=== PATIENT | female | born 1965 | race Two or more races ===

== ENCOUNTER 2017-09-07 12:53 | Inpatient (IN) | payer SELFPAY ==
[2017-09-07] MEDS ORDERED: NORMAL SALINE 1000 ML 1,000 ML IV ONE (13:33)
[2017-09-07 14:14] LABS: HEMATOCRIT 34.7 % (36.0-47.0); HEMOGLOBIN 11.2 g/dL (12.0-15.5); MEAN CORPUSCULAR HEMOGLOBIN 31.3 pg (27.0-33.4); MEAN CORPUSCULAR HGB CONC 32.3 g/dL (32.0-36.0); MEAN CORPUSCULAR VOLUME 97 fl (80-97); PLATELET COUNT 338 10^3/uL (150-450); RED BLOOD COUNT 3.59 10^6/uL (3.72-5.28); RED CELL DISTRIBUTION WIDTH 16.2 % (11.5-14.0)
[2017-09-07 14:17] LABS: WHITE BLOOD COUNT 32.5 10^3/uL (4.0-10.5)
[2017-09-07 14:29] LABS: ALANINE AMINOTRANSFERASE 8 U/L (9-52); ALBUMIN 3.7 g/dL (3.5-5.0); ALKALINE PHOSPHATASE 104 U/L (38-126); ANION GAP 15 (5-19); ASPARTATE AMINO TRANSFERASE 21 U/L (14-36); BILIRUBIN,DIRECT 0.5 mg/dL (0.0-0.4); BILIRUBIN,TOTAL 0.6 mg/dL (0.2-1.3); BLOOD UREA NITROGEN 11 mg/dL (7-20); CALCIUM 8.9 mg/dL (8.4-10.2); CARBON DIOXIDE 27 mmol/L (22-30); CHLORIDE 102 mmol/L (98-107); GLUCOSE 113 mg/dL (75-110); LIPASE 458.4 U/L (23-300); POTASSIUM 3.8 mmol/L (3.6-5.0); SODIUM 144.4 mmol/L (137-145); TOTAL PROTEIN 6.7 g/dL (6.3-8.2)
[2017-09-07 14:30] LABS: CREATINE KINASE < 20 U/L (30-135)
[2017-09-07 14:37] LABS: ABSOLUTE NEUTROPHILS# (MANUAL) 30.2 10^3/uL (1.7-8.2); BAND NEUTROPHILS % (MANUAL) 13 % (3-5); BASOPHILS % (MANUAL) 0 % (0-2); EOSINOPHILS % (MANUAL) 1 % (0-6); LYMPHOCYTES % (MANUAL) 3 % (13-45); METAMYELOCYTES % (MANUAL) 3 % (0); MONOCYTES % (MANUAL) 3 % (3-13); SEGMENTED NEUTROPHILS % (MAN) 77 % (42-78); TOTAL CELLS COUNTED 100
[2017-09-07 14:38] LABS: ANISOCYTOSIS 1+; PLATELET COMMENT ADEQUATE; ROULEAUX 1+; TOXIC GRANULATION 1+
[2017-09-07 14:39] LABS: CREATINE KINASE MB < 0.22 ng/mL (<4.55); TROPONIN I < 0.012 ng/mL
[2017-09-07 15:05] LABS: VENOUS BLOOD PCO2 57.8 mmHg (35-63); VENOUS BLOOD PH 7.3 (7.30-7.42)
[2017-09-07 15:11] LABS: APPEARANCE,URINE SLIGHTLY-CLOUDY; BILIRUBIN,URINE NEGATIVE (NEGATIVE); COLOR,URINE YELLOW; GLUCOSE, URINE NEGATIVE (NEGATIVE); KETONES,URINE NEGATIVE (NEGATIVE); LEUKOCYTE ESTERASE,URINE TRACE (NEGATIVE); NITRITE,URINE NEGATIVE (NEGATIVE); PROTEIN,URINE NEGATIVE (NEGATIVE); URINE SPECIFIC GRAVITY 1.019; UROBILINOGEN,URINE NEGATIVE mg/dL (<2.0)
--- NOTE | 2017-09-07 15:31 | RADIOLOGY REPORT (SQ) ---
EXAM DESCRIPTION: CTA CHEST COMPLETED DATE/TIME: 09/07/2017 3:04 pm REASON FOR STUDY: lung ca, on chemo, sob since this am COMPARISON: None. TECHNIQUE: CT scan of the chest performed using helical scanning technique with dynamic intravenous contrast injection. Images reviewed with lung, soft tissue and bone windows. Reconstructed coronal and sagittal MPR images reviewed. Additional 3 dimensional post-processing performed to develop Maximal Intensity Projection images (SC P). All images stored on PACS. All CT scanners at this facility use dose modulation, iterative reconstruction, and/or weight based d osing when appropriate to reduce radiation dose to as low as reasonably achievable (ALARA). [facility]: Dose Right [facility]: CareDose [facility]: Dose Right [facility]: Teradose 4D [facility]: Mesolight CONTRAST TYPE AND DOSE: contrast/concentration: Isovue 370.00 mg/ml; Total Contrast Delivered: 65.0 ml; Total Saline Delivered: 80.0 ml Contrast bolus optimized for the pulmonary arteries. Not diagnostic for the aorta. RENAL FUNCTION: CREATININE 0.88 RADIATION DOSE: CT Rad equipment meets quality standard of care and radiation dose reduction techniq ues were employed. CTDIvol: 14.3 - 39.7 mGy. DLP: 514 mGy-cm. . LIMITATIONS: None. FINDINGS: LUNGS AND PLEURA: Multiple cavitary nodules are scattered throughout the right lung, the l argest is 2 cm in the right middle lobe. These are worrisome for cavitary metastatic lesions. Septi c emboli could mimic this appearance. No right-sided pleural effusion or pneumothorax. No findings worrisome for acute right lung consolid ation. On the left side, patient has volume loss and pleural thickening with bronchiectasis and parenchymal consolidation in the left perihilar lung and left lower lobe. No pleural effusion. No pneumothorax. AORTA AND GREAT VESSELS: No aneurysm. Contrast bolus not optimized for the aorta. HEART: Small pericardial effusion No significant coronary artery calcifications. PULMONARY ARTERIES: No emboli visualized in the main pulmonary arteries or the segmental branches. HILAR AND MEDIASTINAL STRUCTURES: Conglomerate adenopathy is present along the right peritracheal reg ion, 3.5 x 2 cm in size. Sub- carinal lymph node 3.2 x 2.3 cm in size. HARDWARE: Right permanent central line tip superior vena cava UPPER ABDOMEN: Fat containing subxiphoid ventral hernia. Post cholecystectomy. 2.5 cm cyst left lob e liver subdiaphragmatic surface THYROID AND OTHER SOFT TISSUES: No masses. No adenopathy. BONES: 25% compression of T11, chronic in appearance. Left posterior 7th rib is expanded with mixed lytic and blastic change, worrisome for bony metastatic involvement 3D MIPS: Confirm above findings. OTHER: Report called to the patient's primary caregiver in the emergency room IMPRESSION: No CT angio evidence of acute pulmonary emboli. Post therapeutic changes left hemithorax without pleural effusion or pneumothorax. Right lung cavitary lesions likely metastatic disease Small pericardial effusion COMMENT: Quality ID # [id number]: Final reports with documentation of one or more dose reduction techniques (e.g., Automated exposure control, adjustment of the mA and/or kV according to patient size, use of iterative reconstruction technique) TECHNICAL DOCUMENTATION: JOB ID: [id number] [employer] All Rights Reserved Reading location - IP/workstation name: [email or web address]
[2017-09-07] MEDS ORDERED: HYDROMORPHONE HCL INJ/PF 2 MG/ML AMPULE IV ONE (15:43)
[2017-09-07] MEDS ORDERED: VANCOMYCIN HCL INJ 1000 MG VIAL IV ONE (15:56)
[2017-09-07] MEDS ORDERED: PIPERACILLIN/TAZOBACTAM 3.375 GM VIAL IV ONE (15:56)
[2017-09-07] MEDS ORDERED: ENOXAPARIN SODIUM INJ 80 MG/0.8 ML DISP.SYRIN SUBCUT SCH (16:00)
[2017-09-07] MEDS ORDERED: METOCLOPRAMIDE HCL INJ/PF 10 MG/2 ML SDV IV ONE (16:09)
[2017-09-07] MEDS ORDERED: ACETAMINOPHEN 325 MG TABLET PO PRN (16:38)
[2017-09-07] MEDS ORDERED: NORMAL SALINE 1000 ML 1,000 ML IV PRN (16:38)
[2017-09-07] MEDS ORDERED: LEVALBUTEROL HCL NEB 0.63 MG/3 ML AMPUL NEB PRN (16:38)
[2017-09-07] MEDS ORDERED: TEMAZEPAM 15 MG CAPSULE PO PRN (16:38)
[2017-09-07] MEDS ORDERED: ONDANSETRON HCL INJ/PF 4 MG/2 ML SDV IV PRN (16:38)
--- NOTE | 2017-09-07 16:50 | ER Document Report ---
ED Respiratory Problem - General Chief Complaint: Shortness Of Breath Stated Complaint: SHORTNESS OF BREATH,RIGHT LUNG PAIN Time Seen by Provider: 09/07/17 13:31 Mode of Arrival: Ambulatory Information source: Patient Notes: Patient is a 51-year-old female currently undergoing chemotherapy and Neulasta injections for lung cancer. Patient drives back and forth to [facility] as she just moved to this area 2 weeks ago and still has her oncologist that she sees there. Patient states she just had chemo and Neulasta approximately 1 week ago. She states that she is here because this morning she woke up and started having some right lower chest and upper back pain that is very sharp and hurts worse with deep breathing. She admits to some shortness of breath but mainly the pain with deep breaths. Patient did call her oncologist, Dr. Lomas in [facility] who stated "you probably have a PE, go to the ER. " Patient is not on a blood thinners and has no history of any blood clots. She denies coughing, fevers or chills. She states she does have one nodule in the left lung that is larger and one smaller nodule in the right lung that she knows about. She is due to have a PET scan coming up soon. Patient is no longer a smoker, she stopped in 2012. - Related Data Allergies/Adverse Reactions: No Known Allergies Allergy (Unverified 09/07/17 13:00) Past Medical History - General Information source: Patient - Social History Smoking Status: Former Smoker Chew tobacco use (# tins/day): No Frequency of alcohol use: None Drug Abuse: None Family History: Reviewed & Not Pertinent Patient has suicidal ideation: No Patient has homicidal ideation: No Renal/ Medical History: Denies: Hx Peritoneal Dialysis Past Surgical History: Reports: Hx Vascular Surgery Review of Systems - Review of Systems Constitutional: No symptoms reported EENT: No symptoms reported Cardiovascular: See HPI Respiratory: See HPI Gastrointestinal: No symptoms reported Genitourinary: No symptoms reported Female Genitourinary: No symptoms reported Musculoskeletal: No symptoms reported Skin: No symptoms reported Hematologic/Lymphatic: No symptoms reported Neurological/Psychological: No symptoms reported Physical Exam - Vital signs Vitals: Temp Pulse Resp BP Pulse Ox 98.0 F 92 20 93/60 L 98 09/07/17 13:07 09/07/17 13:07 09/07/17 13:07 09/07/17 13:07 09/07/17 13:07 - Notes Notes: PHYSICAL EXAMINATION: GENERAL: Mildly ill-appearing, but in no acute distress. HEAD: Atraumatic, normocephalic. EYES: Pupils equal round and reactive to light, extraocular movements intact, sclera anicteric, conjunctiva are normal. ENT: ear canals without erythema or foreign body, TMs pearly keita with good bony landmarks, nares patent, oropharynx clear without exudates. Moist mucous membranes. Airway patent NECK: Normal range of motion, supple without lymphadenopathy LUNGS: Pain with deep breathing, otherwise CTAB and equal. No wheezes rales or rhonchi. HEART: Regular rate and rhythm without murmurs ABDOMEN: Soft, no tenderness. No guarding, no rebound BACK: no vertebral tenderness, normal ROM GI/: no CVA tenderness EXTREMITIES: Normal range of motion, no pitting edema. No cyanosis. NEUROLOGICAL: Cranial nerves grossly intact. Normal sensory/motor exams. PSYCH: Normal mood, normal affect. SKIN: Warm, Dry, normal turgor, no rashes or lesions noted Course - Re-evaluation Re-evalutation: 09/07/17 16:49 Patient is not tachycardic, tachypneic but she does have some hypotension at 91/ 50 blood pressure on arrival. This normalized with some IV fluids immediately. Patient is afebrile. Patient does not look short of breath but does have pain on deep breathing on physical exam to the right lower chest and mid back. These areas are nontender. CAT scan reveals multiple cavitary metastatic lesions to the right lobe but no obvious PE, radiologist did put in the report that septic emboli cannot be completely excluded today. White blood cell count is elevated at 32 with 13 bands and 30.2 absolute neutrophils, however patient is on Neulasta and I associate that with that medication. Dr. lutz, oncologist agrees with this. Dr. Mckeon accepts admission at this time. Dr. Lutz, oncologist on-call was consulted and does not believe that this is septic emboli, but does agree with the antibiotic choices at this time and would like to see her admitted, observed so that he can take a look at her in the hospital and evaluate her then. Patient stable at this time with a blood pressure of 95/64, heart rate of 82 and 100% oxygen saturation on room air. Her heart rate was 107/64 until she was given Dilaudid. She also had no oxygen requirement until given Dilaudid. 09/07/17 17:49 - Vital Signs Vital signs: Temp Pulse Resp BP Pulse Ox 98.0 F 92 16 91/60 L 95 09/07/17 13:07 09/07/17 13:07 09/07/17 14:01 09/07/17 14:01 09/07/17 14:01 - Laboratory Result Diagrams: 09/07/17 13:16 09/07/17 13:16 Laboratory results interpreted by me: 09/07/17 09/07/17 09/07/17 13:16 13:16 13:16 WBC 32.5 H* RBC 3.59 L Hgb 11.2 L Hct 34.7 L RDW 16.2 H Band Neutrophils % 13 H Lymphocytes % (Manual) 3 L Metamyelocytes % 3 H Abs Neuts (Manual) 30.2 H Glucose 113 H Magnesium 2.4 H Direct Bilirubin 0.5 H ALT 8 L Creatine Kinase < 20 L Lipase 458.4 H Ur Leukocyte Esterase Urine Ascorbic Acid 09/07/17 14:08 WBC RBC Hgb Hct RDW Band Neutrophils % Lymphocytes % (Manual) Metamyelocytes % Abs Neuts (Manual) Glucose Magnesium Direct Bilirubin ALT Creatine Kinase Lipase Ur Leukocyte Esterase TRACE H Urine Ascorbic Acid 40 H Discharge - Discharge Clinical Impression: cavitary metastatic lesions right lung, Right-sided chest pain Lung cancer Qualifiers: Laterality: unspecified laterality Lung location: unspecified part of lung Qualified Code(s): C34.90 - Malignant neoplasm of unspecified part of unspecified bronchus or lung Condition: Stable Disposition: ADMITTED INPATIENT Admitting Provider: Hospitalist - may Unit Admitted: Telemetry
--- NOTE | 2017-09-07 17:15 | PDOC H&P ---
History of Present Illness Admission Date/PCP: September 07, 2017 Dr. Lomas in [facility], primary oncologist. Patient complains of: Right-sided chest pain History of Present Illness: The patient is a very pleasant 51-year-old lady with history of Lung cancer on chemotherapy- Taxotere and Cyramza- last dose 09/04/17 + Neulasta Hypothyroidism Insomnia She presented to the hospital with sudden onset pleuritic right-sided chest pain. She called her oncologist who asked her to go to the emergency room due to concerns for possible pulmonary embolism. A CT angiogram of the chest was performed. No pulmonary embolism was seen. She does have multiple bilateral pulmonary nodules which are cavitary in nature. She denies any fevers chills or cough. She has some nausea and vomiting but no abdominal pain or constipation no diarrhea. The patient requests to be a full code. Past Medical History Malignancy Medical History: Reports: Lung Cancer Past Surgical History Past Surgical History: Reports: Vascular Surgery Social History Smoking Status: Former Smoker Frequency of Alcohol Use: None Hx Recreational Drug Use: No - Advance Directive Resuscitation Status: Full Code Family History Family History: Hypertension Parental Family History Reviewed: Yes Children Family History Reviewed: Yes Sibling(s) Family History Reviewed.: Yes Medication/Allergy Allergies/Adverse Reactions: No Known Allergies Allergy (Unverified 09/07/17 13:00) Review of Systems Constitutional: ABSENT: fever(s) Eyes: ABSENT: visual disturbances Ears: ABSENT: hearing changes Nose, Mouth, and Throat: ABSENT: sore throat Cardiovascular: PRESENT: chest pain. ABSENT: edema Respiratory: ABSENT: dyspnea Gastrointestinal: PRESENT: nausea, vomiting. ABSENT: abdominal pain, constipation Genitourinary: ABSENT: dysuria Musculoskeletal: ABSENT: joint swelling Integumentary: ABSENT: rash Neurological: ABSENT: focal weakness Psychiatric: ABSENT: hallucinations Endocrine: ABSENT: cold intolerance, heat intolerance Hematologic/Lymphatic: ABSENT: easy bleeding Allergic/Immunologic: ABSENT: seasonal rhinorrhea Physical Exam Vital Signs: Temp Pulse Resp BP Pulse Ox 98.0 F 92 16 91/60 L 95 09/07/17 13:07 09/07/17 13:07 09/07/17 14:01 09/07/17 14:01 09/07/17 14:01 Intake & Output 09/06/17 09/07/17 09/08/17 06:59 06:59 06:59 Weight 66.4 kg General appearance: PRESENT: mild distress Head exam: PRESENT: normocephalic Eye exam: PRESENT: PERRLA. ABSENT: scleral icterus Ear exam: PRESENT: normal external ear exam Mouth exam: PRESENT: moist Neck exam: ABSENT: tracheal deviation Respiratory exam: PRESENT: symmetrical, unlabored. ABSENT: wheezes Cardiovascular exam: PRESENT: RRR GI/Abdominal exam: PRESENT: normal bowel sounds, soft. ABSENT: tenderness Rectal exam: PRESENT: deferred Gentrourinary exam: ABSENT: indwelling catheter Extremities exam: ABSENT: calf tenderness, pedal edema Neurological exam: PRESENT: alert, awake, oriented to person, oriented to place , oriented to time, oriented to situation Psychiatric exam: PRESENT: appropriate affect Skin exam: ABSENT: petechiae Results Laboratory Results: 09/07/17 13:16 09/07/17 13:16 09/07/17 09/07/17 09/07/17 13:16 13:16 14:08 WBC 32.5 H* RBC 3.59 L Hgb 11.2 L Hct 34.7 L MCV 97 MCH 31.3 MCHC 32.3 RDW 16.2 H Plt Count 338 Seg Neutrophils % Not Reportable Lymphocytes % Not Reportable Monocytes % Not Reportable Eosinophils % Not Reportable Basophils % Not Reportable Absolute Neutrophils Not Reportable Absolute Lymphocytes Not Reportable Absolute Monocytes Not Reportable Absolute Eosinophils Not Reportable Absolute Basophils Not Reportable VBG pH VBG pCO2 VBG HCO3 VBG Base Excess Sodium 144.4 Potassium 3.8 Chloride 102 Carbon Dioxide 27 Anion Gap 15 BUN 11 Creatinine 0.88 Est GFR ( Amer) > 60 Est GFR (Non-Af Amer) > 60 Glucose 113 H Calcium 8.9 Total Bilirubin 0.6 AST 21 ALT 8 L Alkaline Phosphatase 104 Total Protein 6.7 Albumin 3.7 Lipase 458.4 H Urine Color YELLOW Urine Appearance SLIGHTLY-CLOUDY Urine pH 5.0 Ur Specific [place] 1.019 Urine Protein NEGATIVE Urine Glucose (UA) NEGATIVE Urine Ketones NEGATIVE Urine Blood NEGATIVE Urine Nitrite NEGATIVE Ur Leukocyte Esterase TRACE H Urine WBC (Auto) 15 Urine RBC (Auto) 1 09/07/17 14:41 WBC RBC Hgb Hct MCV MCH MCHC RDW Plt Count Seg Neutrophils % Lymphocytes % Monocytes % Eosinophils % Basophils % Absolute Neutrophils Absolute Lymphocytes Absolute Monocytes Absolute Eosinophils Absolute Basophils VBG pH 7.30 VBG pCO2 57.8 VBG HCO3 28.0 VBG Base Excess 1.0 Sodium Potassium Chloride Carbon Dioxide Anion Gap BUN Creatinine Est GFR ( Amer) Est GFR (Non-Af Amer) Glucose Calcium Total Bilirubin AST ALT Alkaline Phosphatase Total Protein Albumin Lipase Urine Color Urine Appearance Urine pH Ur Specific [place] Urine Protein Urine Glucose (UA) Urine Ketones Urine Blood Urine Nitrite Ur Leukocyte Esterase Urine WBC (Auto) Urine RBC (Auto) 09/07/17 09/07/17 13:16 13:16 Creatine Kinase < 20 L CK-MB (CK-2) < 0.22 Troponin I < 0.012 Impressions: Chest/Abdomen CTA 09/07/17 13:32 IMPRESSION: No CT angio evidence of acute pulmonary emboli. Post therapeutic changes left hemithorax without pleural effusion or pneumothorax. Right lung cavitary lesions likely metastatic disease Small pericardial effusion Assessment & Plan - Diagnosis (1) Multiple lung nodules on CT Is this a current diagnosis for this admission?: Yes Plan: Differential includes worsening lung cancer versus pneumonia. Continue antibiotics. Oncology evaluation requested. We will need to get her records from [place] for comparison. (2) Lung cancer Qualifiers: Laterality: unspecified laterality Lung location: unspecified part of lung Qualified Code(s): C34.90 - Malignant neoplasm of unspecified part of unspecified bronchus or lung Is this a current diagnosis for this admission?: Yes Plan: As above (3) Right-sided chest pain Is this a current diagnosis for this admission?: Yes Plan: Pleuritic in nature. Likely secondary to spreading lung cancer with pleuritic involvement. (4) Hypothyroidism Is this a current diagnosis for this admission?: Yes Plan: Continue Synthroid (5) Leukocytosis Is this a current diagnosis for this admission?: Yes Plan: Likely due to Neulasta. (6) Insomnia Is this a current diagnosis for this admission?: Yes Plan: Temazepam at bedtime - Time Time Spent: 50 to 70 Minutes
[2017-09-07] MEDS ORDERED: PROMETHAZINE HCL 25 MG SUPP.RECT PR PRN (17:17)
[2017-09-07] MEDS ORDERED: PROMETHAZINE HCL 25 MG TABLET PO PRN (17:17)
[2017-09-07] MEDS ORDERED: OXYCODONE HCL IR 5 MG TABLET PO PRN (17:18)
[2017-09-07] MEDS ORDERED: HYDROMORPHONE HCL INJ/PF 2 MG/ML AMPULE IV PRN (17:18)
[2017-09-07 17:32] LABS: PHOSPHORUS 4.1 mg/dL (2.5-4.5)
[2017-09-07] MEDS: ONDANSETRON 4 MG TAB.RAPDIS PO PRN (18:33)
--- NOTE | 2017-09-07 18:36 | EKG REPORT ---
SEVERITY:- ABNORMAL ECG - SINUS RHYTHM LOW VOLTAGE THROUGHOUT BORDERLINE R WAVE PROGRESSION, ANTERIOR LEADS BORDERLINE T ABNORMALITIES, DIFFUSE LEADS : Confirmed by: Tony Shell MD 07-Sep-2017 18:36:09
[2017-09-07 20:22] LABS: HEMATOCRIT 34.6 % (36.0-47.0); HEMOGLOBIN 11.2 g/dL (12.0-15.5); MEAN CORPUSCULAR HEMOGLOBIN 31.2 pg (27.0-33.4); MEAN CORPUSCULAR HGB CONC 32.3 g/dL (32.0-36.0); MEAN CORPUSCULAR VOLUME 97 fl (80-97); PLATELET COUNT 311 10^3/uL (150-450); RED BLOOD COUNT 3.58 10^6/uL (3.72-5.28); RED CELL DISTRIBUTION WIDTH 15.8 % (11.5-14.0)
[2017-09-07 20:50] LABS: ABSOLUTE NEUTROPHILS# (MANUAL) 31.5 10^3/uL (1.7-8.2); BAND NEUTROPHILS % (MANUAL) 10 % (3-5); BASOPHILS % (MANUAL) 0 % (0-2); EOSINOPHILS % (MANUAL) 0 % (0-6); LYMPHOCYTES % (MANUAL) 3 % (13-45); METAMYELOCYTES % (MANUAL) 3 % (0); MONOCYTES % (MANUAL) 0 % (3-13); SEGMENTED NEUTROPHILS % (MAN) 84 % (42-78); TOTAL CELLS COUNTED 100
[2017-09-07 20:51] LABS: ANISOCYTOSIS 1+; PLATELET COMMENT ADEQUATE; TOXIC GRANULATION SLIGHT; TOXIC VACUOLATION PRESENT
[2017-09-07 20:54] LABS: WHITE BLOOD COUNT 32.5 10^3/uL (4.0-10.5)
[2017-09-07] MEDS ORDERED: TEMAZEPAM 15 MG CAPSULE PO SCH (22:00)
[2017-09-08 06:35] LABS: HEMATOCRIT 29.2 % (36.0-47.0); HEMOGLOBIN 9.6 g/dL (12.0-15.5); MEAN CORPUSCULAR HEMOGLOBIN 31.9 pg (27.0-33.4); MEAN CORPUSCULAR VOLUME 97 fl (80-97); PLATELET COUNT 246 10^3/uL (150-450); RED BLOOD COUNT 3.02 10^6/uL (3.72-5.28); WHITE BLOOD COUNT 29.2 10^3/uL (4.0-10.5)
[2017-09-08 06:37] LABS: INTERNATIONAL RATION (INR) 1.01; PROTHROMBIN TIME 13.8 SEC (11.4-15.4)
[2017-09-08 06:38] LABS: PARTIAL THROMBOPLASTIN TIME 43.1 SEC (23.5-35.8)
--- NOTE | 2017-09-08 08:38 | PDOC CONSULTATION ---
Consultation Consult Date: 09/08/17 Attending physician:: CARRIE DAVIS Consult reason:: Stage IV lung cancer here with right-sided chest pain, concern of septic emboli History of Present Illness Admission Date/PCP: 09/07/17 17:28 Patient complains of: Right-sided chest pain, fever, pneumonia, stage IV lung cancer History of Present Illness: JOHANA TYSON is a 51 year old female with long-standing history of stage IV lung cancer, she was diagnosed in 06/2013, at that time she had a left lung mass with pleural involvement, pleural effusion, she had VATS/pleurodesis with a non- small cell lung cancer diagnosed, she then had chemotherapy with carboplatin and Alimta for 6 cycles, she did receive Neupogen shots with that, and then she had radiation to the left lung. Then she was followed until late 2013 until January 2017. At that time she is having increased cough and shortness of breath, she was found to have new left lung masses, further imaging unfortunately indicated bilateral lung masses, brain involvement, bone involvement, involvement in the abdomen as well. Patient was then on immunotherapy with Opdivo for approximately 3 months with no response. Then in 05/2017 she was started on Taxotere/Cyramza plus Zometa, she had imaging done in 07/2017 which indicated good improvement. She has been treated by Dr. Lomas at [facility]. She moved here to [place] about 2 weeks ago. But she is still following with her oncologist in [place] for now. She last received chemotherapy on 09-04-17 and did receive Neulasta. About 24 hours prior to admission she began having right-sided chest pain which worsened, she had a low-grade fever, upon admission she had CTA of the chest looking for a new thrombosis, there is no pulmonary emboli noted but there was bilateral cavitary lesions of the lung, unsure if this is changed from previous imaging. There was definitely involvement on the right lower lung that could explain her chest pain but she was given a dose of Lovenox, as well as broad- spectrum antibiotics. She is feeling much better today. Past Medical History Malignancy Medical History: Reports: Lung Cancer Psychiatric Medical History: Denies: Depression Past Surgical History Past Surgical History: Reports: Vascular Surgery, Other - VATS/pleurodysis Social History Information Source: Patient Smoking Status: Former Smoker Frequency of Alcohol Use: None Hx Recreational Drug Use: No Drugs: None Hx Prescription Drug Abuse: No - Advance Directive Resuscitation Status: Full Code Family History Family History: Reviewed & Not Pertinent Parental Family History Reviewed: Yes Children Family History Reviewed: Yes Sibling(s) Family History Reviewed.: Yes Medication/Allergy Home Medications: Levothyroxine Sodium [Synthroid 50 Mcg Tablet] 50 mcg PO Q6AM 09/07/17 Temazepam [Restoril 15 mg Capsule] 30 mg PO QHS 09/07/17 Allergies/Adverse Reactions: No Known Allergies Allergy (Unverified 09/07/17 13:00) Review of Systems Constitutional: ABSENT: chills, fever(s), headache(s), weight gain, weight loss Eyes: ABSENT: visual disturbances Ears: ABSENT: hearing changes Cardiovascular: ABSENT: chest pain, dyspnea on exertion, edema, orthropnea, palpitations Respiratory: ABSENT: cough, hemoptysis Gastrointestinal: ABSENT: abdominal pain, constipation, diarrhea, hematemesis, hematochezia, nausea, vomiting Genitourinary: ABSENT: dysuria, hematuria Musculoskeletal: ABSENT: joint swelling Integumentary: ABSENT: rash, wounds Neurological: ABSENT: abnormal gait, abnormal speech, confusion, dizziness, focal weakness, syncope Psychiatric: ABSENT: anxiety, depression, homidical ideation, suicidal ideation Endocrine: ABSENT: cold intolerance, heat intolerance, polydipsia, polyuria Hematologic/Lymphatic: ABSENT: easy bleeding, easy bruising Physical Exam Vital Signs: Temp Pulse Resp BP Pulse Ox 98.6 F 88 16 94/66 L 96 09/08/17 04:00 09/08/17 07:00 09/08/17 04:00 09/08/17 04:00 09/08/17 04:00 Intake & Output 09/07/17 09/08/17 09/09/17 06:59 06:59 06:59 Intake Total 1029 Balance 1029 Weight 68.5 kg General appearance: PRESENT: no acute distress, well-developed, well-nourished Head exam: PRESENT: atraumatic, normocephalic Eye exam: PRESENT: conjunctiva pink, EOMI, PERRLA. ABSENT: scleral icterus Ear exam: PRESENT: normal external ear exam Mouth exam: PRESENT: moist, tongue midline Neck exam: ABSENT: carotid bruit, JVD, lymphadenopathy, thyromegaly Respiratory exam: PRESENT: clear to auscultation benny. ABSENT: rales, rhonchi, wheezes Cardiovascular exam: PRESENT: RRR. ABSENT: diastolic murmur, rubs, systolic murmur Pulses: PRESENT: normal dorsalis pedis pul Vascular exam: PRESENT: normal capillary refill GI/Abdominal exam: PRESENT: normal bowel sounds, soft. ABSENT: distended, guarding, mass, organolmegaly, rebound, tenderness Rectal exam: PRESENT: deferred Extremities exam: PRESENT: full ROM. ABSENT: calf tenderness, clubbing, pedal edema Neurological exam: PRESENT: alert, awake, oriented to person, oriented to place , oriented to time, oriented to situation, CN II-XII grossly intact. ABSENT: motor sensory deficit Psychiatric exam: PRESENT: appropriate affect, normal mood. ABSENT: homicidal ideation, suicidal ideation Skin exam: PRESENT: dry, intact, warm. ABSENT: cyanosis, rash Results Laboratory Results: 09/08/17 06:08 09/07/17 09/08/17 20:12 06:08 WBC 32.5 H* 29.2 H RBC 3.58 L 3.02 L Hgb 11.2 L 9.6 L Hct 34.6 L 29.2 L MCV 97 97 MCH 31.2 31.9 MCHC 32.3 33.0 RDW 15.8 H 16.0 H Plt Count 311 246 Seg Neutrophils % Not Reportable Lymphocytes % Not Reportable Monocytes % Not Reportable Eosinophils % Not Reportable Basophils % Not Reportable Absolute Neutrophils Not Reportable Absolute Lymphocytes Not Reportable Absolute Monocytes Not Reportable Absolute Eosinophils Not Reportable Absolute Basophils Not Reportable Impressions: Chest/Abdomen CTA 09/07/17 13:32 IMPRESSION: No CT angio evidence of acute pulmonary emboli. Post therapeutic changes left hemithorax without pleural effusion or pneumothorax. Right lung cavitary lesions likely metastatic disease Small pericardial effusion Assessment & Plan - Diagnosis (1) Right-sided chest pain Is this a current diagnosis for this admission?: Yes Plan: Likely secondary to the lung involvement on the cancer side, could be infection as well, agree with IV antibiotics. Improving, continue to monitor. (2) Pneumonia involving right lung Qualifiers: Pneumonia type: due to unspecified organism Lung location: lower lobe of lung Qualified Code(s): J18.1 - Lobar pneumonia, unspecified organism Is this a current diagnosis for this admission?: Yes Plan: Probably a right lung pneumonia ongoing, agree with broad-spectrum antibiotics. Plan to treat for another 24 hour with continued antibiotics, ultimately as clinical improvement continues and patient is able to walk without severe chest pain, ultimately I would like to discharge her with Augmentin 875 mg twice daily for 10 days. (3) Lung cancer Qualifiers: Laterality: right Lung location: lower lobe of lung Qualified Code(s): C34.31 - Malignant neoplasm of lower lobe, right bronchus or lung Is this a current diagnosis for this admission?: Yes Plan: Bilateral involvement of recurrent lung cancer, stage IV, continued chemotherapy planned as an outpatient. I have offered transition of care to our office, she is not yet sure if she wants to transition care or continue travel to [place] for care. She will probably make that decision as an outpatient. - Time Time Spent: Greater than 70 Minutes Disposition: Continued hospitalization for another 24 hours, if patient improves probable discharge tomorrow on oral antibiotics. - Inpatient Certification Based on my medical assessment, after consideration of the patient's comorbidities, presenting symptoms, or acuity I expect that the services needed warrant INPATIENT care.: Yes I certify that my determination is in accordance with my understanding of Medicare's requirements for reasonable and necessary INPATIENT services [42 CFR 412.3e].: Yes Medical Necessity: Need For Continuous Telemetry Monitoring, Need for IV Antibiotics
[2017-09-08] MEDS: LEVOTHYROXINE SODIUM 0.05 MG TABLET PO SCH (09:08)
[2017-09-08] MEDS: ENOXAPARIN SODIUM INJ 40 MG/0.4 ML DISP.SYRIN SUBCUT SCH (09:14)
[2017-09-08] MEDS: LEVOFLOXACIN 750 MG/D5W RTU 750 MG/150 ML RTUPB IV SCH (09:14)
[2017-09-08] MEDS: ONDANSETRON 4 MG TAB.RAPDIS PO PRN ×2 (10:43→16:19)
[2017-09-08 11:29] LABS: PATH REVIEW PATHOLOGIST REVIEWED
[2017-09-08] MEDS ORDERED: NORMAL SALINE 1000 ML 1,000 ML IV PRN (18:04)
--- NOTE | 2017-09-08 18:06 | PDOC PROGRESS REPORT ---
Subjective Progress Note for:: 09/08/17 - Patient seen on rounds this morning Subjective:: Patient states she has no acute complaints at this time. We discussed about her care and current antibiotic use. She has already seen her oncologist today. Reason For Visit: PNEUMONIA Physical Exam Vital Signs: Temp Pulse Resp BP Pulse Ox 98.3 F 85 16 88/50 L 94 09/08/17 15:23 09/08/17 15:23 09/08/17 15:23 09/08/17 15:23 09/08/17 15:23 Intake & Output 09/07/17 09/08/17 09/09/17 06:59 06:59 06:59 Intake Total 1029 240 Balance 1029 240 Weight 151 lb 0.266 oz General appearance: PRESENT: no acute distress, thin, well-developed, well- nourished Eye exam: PRESENT: EOMI. ABSENT: conjunctival injection, scleral icterus Mouth exam: PRESENT: moist, neck supple Neck exam: PRESENT: full ROM. ABSENT: JVD, tenderness Respiratory exam: PRESENT: clear to auscultation benny, symmetrical Cardiovascular exam: PRESENT: RRR, +S1, +S2 Pulses: PRESENT: +2 pedal pulses bilateral Vascular exam: PRESENT: normal capillary refill GI/Abdominal exam: PRESENT: normal bowel sounds, soft. ABSENT: tenderness Extremities exam: ABSENT: pedal edema Musculoskeletal exam: PRESENT: full ROM. ABSENT: tenderness Neurological exam: PRESENT: alert, altered, awake, oriented to person, oriented to place, oriented to time, CN II-XII grossly intact Skin exam: PRESENT: dry, warm Results Laboratory Results: 09/08/17 06:08 09/07/17 09/08/17 20:12 06:08 WBC 32.5 H* 29.2 H RBC 3.58 L 3.02 L Hgb 11.2 L 9.6 L Hct 34.6 L 29.2 L MCV 97 97 MCH 31.2 31.9 MCHC 32.3 33.0 RDW 15.8 H 16.0 H Plt Count 311 246 Seg Neutrophils % Not Reportable Lymphocytes % Not Reportable Monocytes % Not Reportable Eosinophils % Not Reportable Basophils % Not Reportable Absolute Neutrophils Not Reportable Absolute Lymphocytes Not Reportable Absolute Monocytes Not Reportable Absolute Eosinophils Not Reportable Absolute Basophils Not Reportable Impressions: Chest/Abdomen CTA 09/07/17 13:32 IMPRESSION: No CT angio evidence of acute pulmonary emboli. Post therapeutic changes left hemithorax without pleural effusion or pneumothorax. Right lung cavitary lesions likely metastatic disease Small pericardial effusion Assessment & Plan - Diagnosis (1) Pneumonia involving right lung Qualifiers: Pneumonia type: due to unspecified organism Lung location: lower lobe of lung Qualified Code(s): J18.1 - Lobar pneumonia, unspecified organism Is this a current diagnosis for this admission?: Yes (2) Right-sided chest pain Is this a current diagnosis for this admission?: Yes (3) Lung cancer Qualifiers: Laterality: right Lung location: lower lobe of lung Qualified Code(s): C34.31 - Malignant neoplasm of lower lobe, right bronchus or lung Is this a current diagnosis for this admission?: Yes (4) Multiple lung nodules on CT Is this a current diagnosis for this admission?: Yes (5) Hypothyroidism Is this a current diagnosis for this admission?: Yes - Time Time Spent with patient: 25-34 minutes - Plan Summary Plan Summary: 51-year-old female with past medical history of metastatic lung cancer who was admitted to the hospital complaining of right-sided chest pain with low-grade fever. Oncology was consulted-I appreciate her assistance. Her chest pain is likely secondary to her lung cancer. Currently she is on IV Levaquin-I think tomorrow we can switch her to p.o. antibiotics if she does well. Likely we will switch her to Augmentin for 10 days. Her white count is trending down 32--> 29 today. I will decrease her IV fluids since she is tolerating a diet.
[2017-09-08] MEDS ORDERED: TEMAZEPAM 15 MG CAPSULE PO SCH (20:00)
[2017-09-09] MEDS: ENOXAPARIN SODIUM INJ 40 MG/0.4 ML DISP.SYRIN SUBCUT SCH (08:56)
[2017-09-09] MEDS: LEVOFLOXACIN 750 MG/D5W RTU 750 MG/150 ML RTUPB IV SCH (09:03)
[2017-09-09] MEDS: LEVOTHYROXINE SODIUM 0.05 MG TABLET PO SCH (09:03)
[2017-09-09 10:07] LABS: HEMATOCRIT 28.7 % (36.0-47.0); HEMOGLOBIN 9.4 g/dL (12.0-15.5); MEAN CORPUSCULAR HEMOGLOBIN 31.8 pg (27.0-33.4); MEAN CORPUSCULAR HGB CONC 32.9 g/dL (32.0-36.0); MEAN CORPUSCULAR VOLUME 97 fl (80-97); PLATELET COUNT 276 10^3/uL (150-450); RED BLOOD COUNT 2.97 10^6/uL (3.72-5.28); RED CELL DISTRIBUTION WIDTH 15.8 % (11.5-14.0); WHITE BLOOD COUNT 23.2 10^3/uL (4.0-10.5)
[2017-09-09 10:36] LABS: ABSOLUTE LYMPHOCYTES# (MANUAL) 0.7 10^3/uL (0.5-4.7); ABSOLUTE MONOCYTES # (MANUAL) 0.7 10^3/uL (0.1-1.4); ABSOLUTE NEUTROPHILS# (MANUAL) 21.3 10^3/uL (1.7-8.2); BAND NEUTROPHILS % (MANUAL) 2 % (3-5); BASOPHILS % (MANUAL) 0 % (0-2); EOSINOPHILS % (MANUAL) 2 % (0-6); LYMPHOCYTES % (MANUAL) 3 % (13-45); METAMYELOCYTES % (MANUAL) 1 % (0); MONOCYTES % (MANUAL) 3 % (3-13); SEGMENTED NEUTROPHILS % (MAN) 89 % (42-78); TOTAL CELLS COUNTED 100
[2017-09-09 10:38] LABS: ANISOCYTOSIS SLIGHT; OVALOCYTES 1+; PLATELET COMMENT ADEQUATE; POIKILOCYTOSIS 1+; POLYCHROMASIA SLIGHT
[2017-09-09 11:42] VITALS: BP 122/68
--- NOTE | 2017-09-09 11:42 | PDOC DISCHARGE SUMMARY ---
General - Admit/Disc Date/PCP Admission Date/Primary Care Provider: 09/07/17 17:28 Discharge Date: 09/09/17 - Discharge Diagnosis (1) Pneumonia involving right lung Is this a current diagnosis for this admission?: Yes (2) Right-sided chest pain Is this a current diagnosis for this admission?: Yes (3) Lung cancer Is this a current diagnosis for this admission?: Yes (4) Multiple lung nodules on CT Is this a current diagnosis for this admission?: Yes (5) Hypothyroidism Is this a current diagnosis for this admission?: Yes - Additional Information Resuscitation Status: Full Code Discharge Diet: As Tolerated Discharge Activity: Activity As Tolerated Prescriptions: Amox Tr/Potassium Clavulanate [Augmentin 875-125 mg Tablet] 1 tab PO BID #20 tablet Home Medications: Levothyroxine Sodium [Synthroid 0.05 mg Tablet] 50 mcg PO Q6AM 09/07/17 Temazepam [Restoril 15 mg Capsule] 30 mg PO QHS 09/07/17 Amox Tr/Potassium Clavulanate [Augmentin 875-125 mg Tablet] 1 tab PO BID #20 tablet 09/09/17 History of Present Illness Patient complains of: right sided chest pain History of Present Illness: JOHANA TYSON is a 51 year old female with PMH of lung Ca admitted to hospital for pneumonia. Please see H&P for full assessment and plane Hospital Course Hospital Course: After admission to the hospital she was started on Levaquin IV for pneumonia. She received dose yesterday and today. She was evaluated by oncology yesterday and likely her right-sided chest pain is due to her lung cancer. Oncology recommends discharge of her pneumonia is improving and if she is ambulatory without exacerbating right-sided chest pain. The believe that the chest pain is likely due to her cancer. Patient is requesting discharge this morning. Oncology recommends 10 days Augmentin. Oncology recommends continued care with her oncologist and RANDY Carter Physical Exam Vital Signs: Temp Pulse Resp BP Pulse Ox 98.9 F 86 16 100/62 99 09/09/17 07:17 09/09/17 08:52 09/09/17 08:52 09/09/17 07:17 09/09/17 08:52 Intake & Output 09/08/17 09/09/17 09/10/17 06:59 06:59 06:59 Intake Total 1029 2770 Balance 1029 2770 Weight 151 lb 0.266 oz 156 lb 15.506 oz General appearance: PRESENT: no acute distress, well-developed, well-nourished Head exam: PRESENT: atraumatic, normocephalic Eye exam: PRESENT: EOMI. ABSENT: conjunctival injection, scleral icterus Ear exam: PRESENT: normal external ear exam Mouth exam: PRESENT: moist, neck supple Neck exam: PRESENT: full ROM. ABSENT: JVD, tenderness Respiratory exam: PRESENT: decreased breath sounds - right side, wheezes - scattered expiratory wheezing. ABSENT: rhonchi Cardiovascular exam: PRESENT: +S1, +S2, other - port noted on chest wall Pulses: PRESENT: +2 pedal pulses bilateral Vascular exam: PRESENT: normal capillary refill GI/Abdominal exam: PRESENT: normal bowel sounds, soft. ABSENT: tenderness Extremities exam: ABSENT: joint swelling, pedal edema Musculoskeletal exam: PRESENT: ambulatory, full ROM. ABSENT: tenderness Neurological exam: PRESENT: alert, altered, awake, oriented to person, oriented to place, oriented to time, CN II-XII grossly intact Skin exam: PRESENT: dry, warm Results Laboratory Results: 09/09/17 08:59 09/09/17 09/09/17 08:59 08:59 WBC 23.2 H RBC 2.97 L Hgb 9.4 L Hct 28.7 L MCV 97 MCH 31.8 MCHC 32.9 RDW 15.8 H Plt Count 276 Seg Neutrophils % Not Reportable Lymphocytes % Not Reportable Monocytes % Not Reportable Eosinophils % Not Reportable Basophils % Not Reportable Absolute Neutrophils Not Reportable Absolute Lymphocytes Not Reportable Absolute Monocytes Not Reportable Absolute Eosinophils Not Reportable Absolute Basophils Not Reportable Magnesium 2.0 Impressions: Chest/Abdomen CTA 09/07/17 13:32 IMPRESSION: No CT angio evidence of acute pulmonary emboli. Post therapeutic changes left hemithorax without pleural effusion or pneumothorax. Right lung cavitary lesions likely metastatic disease Small pericardial effusion Qualifiers - * PATIENT BEING DISCHARGED WITH ANY OF THE FOLLOWING DIAGNOSIS: No Plan Time Spent: Less than 30 Minutes
== END 2017-09-09 12:50 | disposition home or self-care (01) | DRG 194 ==
LOC: ER 12:53 → UNDOADMIN 17:28 → EH 17:28 → 4N 20:48
PROVIDERS: ADMIT Internal Medicine; ATTEND Internal Medicine
DX: J18.1 Lobar pneumonia, unspecified organism (principal); C34.31 Malignant neoplasm of lower lobe, right bronchus or lung; I95.9 Hypotension, unspecified; E03.9 Hypothyroidism, unspecified; Z79.899 Other long term (current) drug therapy; Z87.891 Personal history of nicotine dependence
CPT/HCPCS: 36415; 71275; 80053; 81001; 82550; 82553; 82803; 83690; 83735; 84100; 84484; 85025; 85027; 85610; 85730; 87040; 93005; 93010; 94640; 96361; 96365; 96367; 96372; 96375; 99285; J1170; J1650; J1956; J2543; J2765; J3370; J3490; J7030; J7614; S0119